=== PATIENT | male | born 1935 | race Caucasian/White ===

== ENCOUNTER → 2017-11-19 | Outpatient (CLI) | payer MEDICARE, OTHER ==
[~2017-11-19] MED LIST: ASPIR 8181 MG PO; AUGMENTIN 875-1 EACH PO; CARDIZEM CD120 MG PO; FLAGYL500 MG PO; FLECAINIDE ACET50 M1 PO; FLOMAX0.4 MG PO; GLUCOTROL5 MG PO; LEVEMIR SUBQ; METFORMIN HCL500 M1 PO; METOPROLOL SUCC50 MG PO; NEXIUM40 MG PO; SYNTHROID88 MCG PO; TOPROL XL100 MG PO; TRAMADOL 50 MG50 MG PO; TRESIBA FL100 UNIT/1 SUBQ; ZOCOR20 MG PO
== END ==
LOC: M.ULTRA 10:15
DX: N28.1 Cyst of kidney, acquired (principal); I12.9 Hypertensive chronic kidney disease with stage 1 through stage 4 chronic kidney disease, or unspecified chronic kidney disease; N18.3 Chronic kidney disease, stage 3 (moderate)

== ENCOUNTER → 2017-11-26 | Outpatient (CLI) | payer MEDICARE, OTHER ==
[2017-11-26 10:06] LABS: CREATININE 1.4 mg/dL (0.6-1.3)
== END ==
LOC: M.CT 09:39 → M.LAB 10:00 → M.CT 11:00
PROVIDERS: Internal Medicine
DX: K57.30 Diverticulosis of large intestine without perforation or abscess without bleeding (principal); K76.0 Fatty (change of) liver, not elsewhere classified; K42.9 Umbilical hernia without obstruction or gangrene; M47.816 Spondylosis without myelopathy or radiculopathy, lumbar region; J98.4 Other disorders of lung; I12.9 Hypertensive chronic kidney disease with stage 1 through stage 4 chronic kidney disease, or unspecified chronic kidney disease; N18.3 Chronic kidney disease, stage 3 (moderate); E11.22 Type 2 diabetes mellitus with diabetic chronic kidney disease

== ENCOUNTER → 2020-01-24 | Outpatient (CLI) | payer MEDICARE, OTHER | LOC: M.RAD 14:11 | PROVIDERS: ATTEND Internal Medicine | DX: M17.11 Unilateral primary osteoarthritis, right knee (principal) ==

== ENCOUNTER → 2020-07-18 | Outpatient (CLI) | payer MEDICARE, OTHER ==
[~2020-07-18] MED LIST changes: +B12 ACTIVE1000 MCG PO; +D3 DOTS50 MCG PO; +FLAXSEED OIL1000 MG PO; +GARLIC1000 MG PO; +HYDROCODON-ACE1 EAC7 PO; +LIDOCAINE PAIN1 EACH TRANSDERM; +METROCREAM45 GM TRANSDERM; +PROTONIX40 M2 PO
== END ==
LOC: M.PC 09:43
PROVIDERS: ATTEND Anesthesiology Pain Medicine
DX: M48.061 Spinal stenosis, lumbar region without neurogenic claudication (principal); M25.561 Pain in right knee; I12.9 Hypertensive chronic kidney disease with stage 1 through stage 4 chronic kidney disease, or unspecified chronic kidney disease; E11.22 Type 2 diabetes mellitus with diabetic chronic kidney disease; N18.32 Chronic kidney disease, stage 3b; E11.21 Type 2 diabetes mellitus with diabetic nephropathy; K21.9 Gastro-esophageal reflux disease without esophagitis; D69.6 Thrombocytopenia, unspecified; E78.5 Hyperlipidemia, unspecified; I48.91 Unspecified atrial fibrillation; E78.00 Pure hypercholesterolemia, unspecified; E03.9 Hypothyroidism, unspecified; Z79.4 Long term (current) use of insulin; Z79.82 Long term (current) use of aspirin